=== PATIENT | female | born 1950 | race Caucasian/White ===

== ENCOUNTER 2023-03-30 14:50 | Emergency (ER) | payer BC, MEDICARE, OTHER ==
[2023-03-30] MEDS ORDERED: Lidocaine 4% 1 each Patch TOP ONE (16:00)
[2023-03-30] MEDS ORDERED: Acetaminophen 325 MG Tab PO ONE (16:41)
[2023-03-31] MEDS ORDERED: Lidocaine 4% 1 each Patch TOP ONE (15:17)
== END 2023-03-30 16:56 | disposition home or self-care (01) ==
LOC: MW.ED 14:50
DX: M71.22 Synovial cyst of popliteal space [Baker], left knee (principal); I10 Essential (primary) hypertension; F17.210 Nicotine dependence, cigarettes, uncomplicated
CPT/HCPCS: 93970; 99283; A9270

== ENCOUNTER 2023-12-13 13:42 | Emergency (ER) | payer BC, MEDICARE | END 2023-12-13 15:38 | disposition home or self-care (01) | LOC: MW.ED 13:42 | DX: S09.90XA Unspecified injury of head, initial encounter (principal); S09.93XA Unspecified injury of face, initial encounter; I10 Essential (primary) hypertension; E78.00 Pure hypercholesterolemia, unspecified; F17.210 Nicotine dependence, cigarettes, uncomplicated; Z79.899 Other long term (current) drug therapy; W01.0XXA Fall on same level from slipping, tripping and stumbling without subsequent striking against object, initial encounter | CPT/HCPCS: 70486; 70486-26; 99283 ==

== ENCOUNTER 2024-03-04 17:22 | Emergency (ER) | payer MEDICARE ==
[2024-03-04] MEDS: Lidocaine 1% 5 ML VIAL INJECT ONE (19:29)
[2024-03-04] MEDS: Diphtheria,Pertussis(Acell),Tetanus Vaccine 0.5 ML Syringe IM ONE (19:29)
== END 2024-03-04 19:42 | disposition home or self-care (01) ==
LOC: MW.ED 17:22
DX: S61.412A Laceration without foreign body of left hand, initial encounter (principal); Z23 Encounter for immunization; Z75.8 Other problems related to medical facilities and other health care; I10 Essential (primary) hypertension; E78.00 Pure hypercholesterolemia, unspecified; F17.210 Nicotine dependence, cigarettes, uncomplicated; Z79.899 Other long term (current) drug therapy; W26.8XXA Contact with other sharp object(s), not elsewhere classified, initial encounter
CPT/HCPCS: 12001; 90471; 90715; 99282; 99282-25; J3490

== ENCOUNTER 2025-01-30 12:04 | Emergency (ER) | payer SELFPAY ==
[2025-01-30] MEDS ORDERED: Sodium Chloride 0.9% 10 ML Syringe FLUSH PRN (12:22)
[2025-01-30] MEDS ORDERED: Sodium Chloride 0.9% 2.5 ML Syringe FLUSH PRN (12:22)
[2025-01-30 12:33] LABS: BASOPHILS ABSOLUTE AUTO 0.05 K/uL (0.00-0.20); BASOPHILS PERCENT AUTO 0.5 % (0.0-1.0); EOSINOPHILS ABSOLUTE AUTO 0.08 K/uL (0.00-0.45); EOSINOPHILS PERCENT AUTO 0.8 % (0.0-6.0); IMMATURE GRAN ABSOLUTE AUTO 0.03 K/uL (0.00-0.05); IMMATURE GRAN PERCENT AUTO 0.3 % (0.0-0.4); LYMPHOCYTES ABSOLUTE AUTO 2.18 K/uL (1.00-4.80); LYMPHOCYTES PERCENT AUTO 23.1 % (24.0-44.0); MEAN PLATELET VOLUME 10.5 fL (9.4-12.3); MONOCYTES ABSOLUTE AUTO 0.60 K/uL (0.00-0.80); MONOCYTES PERCENT AUTO 6.4 % (0.0-8.0); NEUTROPHILS ABSOLUTE AUTO 6.48 K/uL (1.80-7.70); NEUTROPHILS PERCENT AUTO 68.9 % (41.0-71.0); NRBC ABSOLUTE 0.00 K/uL (0.00-0.02); NRBC PERCENT 0.0 /100WBC (0.0-0.2); PLATELET COUNT,PLT 276 K/uL (150-400); RED BLOOD CELL COUNT 4.81 M/uL (4.10-5.30); WHITE BLOOD CELL COUNT,WBC 9.42 K/uL (3.9-11.3)
[2025-01-30 12:44] LABS: INR 0.97 (0.86-1.11)
[2025-01-30] MEDS ORDERED: LORazepam 2 MG/ML SDV IVPUSH ONE (12:51)
[2025-01-30] MEDS: methylPREDNISolone Sodium Succinate 125 MG/2 ML SDV IVPUSH ONE (13:05)
[2025-01-30 13:14] LABS: A/G RATIO 1.1 (0.9-1.6); ALANINE AMINOTRANSFERASE,ALT 23.0 IU/L (14-63); ASPARTATE AMNIOTRANSFERASE,AST 19.0 IU/L (15-37); BILIRUBIN TOTAL 0.3 mg/dL (0.2-1.0); BLOOD UREA NITROGEN,BUN 12.0 mg/dL (7.0-18.0); CARBON DIOXIDE,CO2 26.4 mmol/L (21.0-32.0); CHLORIDE,CL 104.0 mmol/L (98-107); CREATININE 0.9 mg/dL (0.6-1.0); EST CRCL DRUG DOSING (CG) 50.84 mL/min; GLUCOSE RANDOM 164.0 mg/dL (74-106); POTASSIUM,K 3.4 mmol/L (3.5-5.1); PRO B-TYPE NATRIUR PEPT,BNPPRO 436.0 pg/mL (0-125); PROTEIN TOTAL,TP 7.6 g/dL (6.4-8.2); SODIUM,NA 140.0 mmol/L (136-145)
[2025-01-30 13:18] LABS: ESTIMATED GFR 68.0 mL/min (>60)
[2025-01-30] MEDS: Magnesium Sulfate 2 GM/50 mL 2 GM in Premix Bag 1 BAG IV ONE (14:13)
[2025-01-30] MEDS: LORazepam 2 MG/ML SDV IVPUSH ONE (14:27)
[2025-01-30] MEDS: Iopamidol 755 MG/ML 500 ML Multipack Bottle IVPUSH STA (15:02)
== END 2025-01-30 15:51 | disposition home or self-care (01) ==
LOC: MW.ED 12:04
DX: J44.9 Chronic obstructive pulmonary disease, unspecified (principal); F41.9 Anxiety disorder, unspecified; E83.42 Hypomagnesemia; I10 Essential (primary) hypertension; F17.200 Nicotine dependence, unspecified, uncomplicated; Z79.899 Other long term (current) drug therapy
CPT/HCPCS: 36415; 71045; 71275; 80053; 83735; 83880; 84484; 85025; 85379; 85610; 87428; 93005; 96365; 96375; 99285; J2060; J2919; J3475; J7620; Q9967; 99283; A9270-GY